=== PATIENT | female | born 2000 | race Caucasian/White ===

== ENCOUNTER 2022-06-13 19:00 | Inpatient (IN) | payer OTHER ==
[2022-06-15] MEDS ORDERED: Tranexamic Acid 1,000 MG/10 ML VIAL IVP PRN (03:46)
[2022-06-15] MEDS ORDERED: Lidocaine 1% (PF) 30 ML VIAL SC PRN (03:46)
[2022-06-15] MEDS ORDERED: Acetaminophen 500 MG TAB PO PRN (03:46)
[2022-06-15] MEDS ORDERED: Methylergonovine 0.2 MG/ML VIAL IM PRN ×2 (03:46→17:44)
[2022-06-15] MEDS ORDERED: Carboprost 250 MCG/ML AMP IM PRN (03:46)
[2022-06-15] MEDS ORDERED: Butorphanol Tartrate 1 MG/ML VIAL SLOW IVP PRN (03:46)
[2022-06-15] MEDS ORDERED: Ondansetron PF 4 MG/2 ML Vial IVP PRN ×3 (03:46→17:44)
[2022-06-15] MEDS ORDERED: Promethazine HCl 25 MG/ML VIAL IM PRN ×3 (03:46→17:44)
[2022-06-15] MEDS ORDERED: Misoprostol 200 MCG TAB PR PRN (03:46)
[2022-06-15] MEDS ORDERED: hydrALAZINE 20 MG/ML VIAL SLOW IVP PRN ×2 (03:46→17:44)
[2022-06-15] MEDS ORDERED: NS w/ Oxytocin 30 units 500 ML IV SCH ×3 (04:00→17:44)
[2022-06-15] MEDS: Lactated Ringer's 1,000 ML IV SCH ×2 (04:00→11:56)
[2022-06-15 04:03] VITALS: BMI 30.6
[2022-06-15] MEDS ORDERED: Penicillin G Potassium 5 MILL.UNITS in Sodium Chloride 0.9% 100 ML IVPB SCH (04:30)
[2022-06-15 05:17] LABS: Hemoglobin 11.1 g/dL (12.0-15.5); Mean Corpuscular HGB CONC 32.9 g/dL (32.0-36.0); Mean Corpuscular Volume 91.1 fl (81.6-98.3); Mean Platelet Volume 11.3 fl (7.4-10.4); Platelet Count 275 10x3/uL (150-450); RBC Distribution Width 13.6 % (11.5-14.5); White Blood Cell (WBC) Count 8.4 10x3/uL (3.5-10.5)
[2022-06-15 06:08] LABS: HBSAg Index 0.14 S/CO (0-0.99); Hep B Surf Ag - L&D Non-Reactive S/CO (NonReactive)
[2022-06-15 06:10] LABS: Syphilis Antibody Nonreactive (Nonreactive); Syphilis Antibody Index 0.05 S/CO (<1.00 Non-Reactive)
[2022-06-15] MEDS ORDERED: Bupivacaine/Epinephrine 0.25% 30 ML VIAL ONE (08:00)
[2022-06-15] MEDS ORDERED: Penicillin G 2.5 MILL.units 50 ML ONE (09:00)
[2022-06-15] MEDS: Penicillin G 2.5 MILL.units 2.5 MILL.UNITS in Premix Bag 1 BAG IVPB SCH ×2 (09:01→13:19)
[2022-06-15] MEDS ORDERED: Fentanyl 2 mcg/Bup 0.1% Cadd 100 ML ONE (11:37)
[2022-06-15] MEDS ORDERED: Acetaminophen 325 MG TAB PO PRN (13:41)
[2022-06-15] MEDS ORDERED: Lactated Ringer's 500 ML IV PRN (13:41)
[2022-06-15] MEDS ORDERED: Naloxone HCl 0.4 mg/ml Vial IVP PRN ×2 (13:41)
[2022-06-15] MEDS ORDERED: diphenhydrAMINE 50 MG/ML VIAL IVP PRN (13:41)
[2022-06-15] MEDS ORDERED: ePHEDrine Sulfate 50 MG/10 ML VIAL SLOW IVP PRN (13:41)
[2022-06-15] MEDS ORDERED: Moisturizing Cream (Eucerin) 113 GM JAR TOP PRN (13:41)
[2022-06-15] MEDS ORDERED: Communication Order-Pharmacy FS SCH (13:45)
[2022-06-15] MEDS ORDERED: Fentanyl 2 mcg/Bupivacaine 0.1% Cassette 100 ML EPIDURAL SCH (13:45)
[2022-06-15] MEDS ORDERED: Milk Of Magnesia 30 ML UDCUP PO PRN (17:44)
[2022-06-15] MEDS ORDERED: Bisacodyl 10 MG SUPP PR PRN (17:44)
[2022-06-15] MEDS ORDERED: Benzocaine-Menthol 82.5 ML CAN TOP PRN (17:44)
[2022-06-15] MEDS ORDERED: Misoprostol 200 MCG TAB VAG PRN (17:44)
[2022-06-15] MEDS ORDERED: Boostrix 0.5 ML (Tdap) VIAL (>/=7 yrs of age) IM ONE (17:44)
[2022-06-15] MEDS ORDERED: Lanolin Ointment 7 GM TUBE TOP PRN (17:44)
[2022-06-15] MEDS ORDERED: Ferrous Sulfate 325 MG TAB PO SCH (18:00)
[2022-06-15] MEDS: Ibuprofen 800 MG TAB PO SCH (21:25)
[2022-06-15] MEDS: Docusate 100 MG CAP PO SCH (21:25)
[2022-06-16] MEDS: Ibuprofen 800 MG TAB PO SCH ×2 (05:51→14:47)
[2022-06-16] MEDS ORDERED: Ferrous Sulfate 325 MG TAB PO SCH (08:00)
[2022-06-16] MEDS: Docusate 100 MG CAP PO SCH (08:31)
[2022-06-16] MEDS ORDERED: Prenatal Vitamin 1 TAB PO SCH (09:00)
[2022-06-16] MEDS: Penicillin G 2.5 MILL.units 2.5 MILL.UNITS in Premix Bag 1 BAG IVPB SCH (11:39)
[2022-06-16 12:40] VITALS: BP 103/55; TEMP 98.5
== END 2022-06-16 18:20 | disposition home or self-care (01) | DRG 807 ==
LOC: CSHLD 06-15 02:52 → CSHPP 06-15 18:15
PROVIDERS: ADMIT Obstetrics & Gynecology; ATTEND Obstetrics & Gynecology
PROC: 10E0XZZ Delivery of Products of Conception, External Approach (ICD-10-PCS; principal; 2022-06-15)
PROC: 10907ZC Drainage of Amniotic Fluid, Therapeutic from Products of Conception, Via Natural or Artificial Opening (ICD-10-PCS; 2022-06-15)
PROC: 10H07YZ Insertion of Other Device into Products of Conception, Via Natural or Artificial Opening (ICD-10-PCS; 2022-06-15)
DX: O99.824 Streptococcus B carrier state complicating childbirth (principal); Z37.0 Single live birth; Z3A.39 39 weeks gestation of pregnancy; D64.9 Anemia, unspecified; F41.9 Anxiety disorder, unspecified; O99.344 Other mental disorders complicating childbirth; O99.02 Anemia complicating childbirth; O71.82 Other specified trauma to perineum and vulva
CPT/HCPCS: 36415; 51702; 85027; 86780; 86850; 86900; 86901; 87340; J1200; J2310; J2405; J2540; J3490; J7120